=== PATIENT | female | born 1985 | race Caucasian/White ===

== ENCOUNTER 2020-08-28 16:38 | Emergency (ER) | payer OTHER ==
[~2020-08-28 16:38] MED LIST: AZITHROMYCIN250 MG PO; DUONEB 2.5-0.5M1 AMP NEB; HYDROCODON-ACE1 EAC4 PO; LITHIUM CARBON450 MG PO; PREDNISONE 20MG20 MG PO; PROPRANOLOL HCL10 MG PO; SEROQUEL50 MG PO; TOPAMAX100 MG PO; VITAMIN D10000 UNIT PO
[2020-08-28] MEDS ORDERED: NORCO 5-325 TA1 EACH PO (23:58)
[2020-08-28] MEDS ORDERED: ATIVAN0.5 MG PO (23:58)
== END 2020-08-29 00:27 | disposition home or self-care (01) ==
LOC: FER 16:38
DX: S73.101A Unspecified sprain of right hip, initial encounter (principal); M54.41 Lumbago with sciatica, right side; W19.XXXA Unspecified fall, initial encounter
CPT/HCPCS: 72125; 72128; 72131; 72192; 73502; 96372; J1100; J1885

== ENCOUNTER 2021-10-17 17:34 | Emergency (ER) | payer OTHER ==
[~2021-10-17 17:34] MED LIST changes: +ATIVAN0.5 MG PO; +NORCO 5-325 TA1 EACH PO
[2021-10-17 18:34] LABS: BASOPHIL 0.3 % (0-2); HCT 44.9 % (37.0-47.0); HGB 15.1 g/dl (12.5-16.0); LYMPHOCYTE 24.5 % (15-48); MCH 29.9 pg (25.0-31.0); MCHC 33.6 g/dL (32.0-36.0); MCV 88.9 fL (78.0-100.0); MONOCYTE 7.6 % (0-12); MPV 8.5 fL (6.0-9.5); NEUTROPHIL 65.2 % (41-80); NRBC 0; PLT 365 K/uL (150-400); RBC 5.05 M/uL (4.20-5.40); RDW 14.1 % (11.5-14.0); WBC 12.6 K/uL (4.0-10.5)
[2021-10-17 18:44] LABS: BUN/CREAT RATIO (CALC) 11.6 RATIO; CREATININE 0.95 mg/dL (0.51-0.95); MAGNESIUM 1.7 mg/dL (1.8-2.4); POTASSIUM 3.9 mmol/L (3.5-5.1)
[2021-10-17] MEDS ORDERED: CYCLOBENZAPRINE10 MG PO ×2 (19:54→20:23)
[2021-10-17] MEDS ORDERED: PREDNISONE 20MG20 MG PO ×2 (19:54→20:23)
[2021-10-17] MEDS ORDERED: NORCO 5-325 TA1 EACH PO (20:22)
== END 2021-10-17 20:05 | disposition home or self-care (01) ==
LOC: FER 17:34
PROVIDERS: Nurse Practitioner Family
DX: M51.36 Other intervertebral disc degeneration, lumbar region (principal); Z88.8 Allergy status to other drugs, medicaments and biological substances
CPT/HCPCS: 36415; 72040; 72131; 80048; 83735; 85025; J1100; J2060